=== PATIENT | female | born 1995 | race Caucasian/White ===

== ENCOUNTER 2017-05-20 17:47 | Emergency (ER) | payer OTHER ==
[~2017-05-20] VITALS: Ht 152.4 cm; Wt 54.9 kg
[2017-05-20 19:36] VITALS: BP 106/54
[2017-05-20 19:40] LABS: microscopic required? NO
[2017-05-20 19:54] LABS: urine erythrocyte NEGATIVE (NEGATIVE)
[2017-05-20 19:57] LABS: BASOPHIL % 0.6 % (0-2); PLATELET COUNT 267 x10^3mcL (130-400); RED CELL DISTRIBUTION WIDTH 13.3 % (11.5-14.5)
== END 2017-05-20 20:48 | disposition home or self-care (01) ==
LOC: ED 17:47
PROVIDERS: Emergency Medicine Emergency Medical Services
DX: O26.891 Other specified pregnancy related conditions, first trimester (principal); R10.32 Left lower quadrant pain; Z3A.01 Less than 8 weeks gestation of pregnancy
CPT/HCPCS: 36415

== ENCOUNTER 2018-06-12 18:14 | Emergency (ER) | payer OTHER ==
[~2018-06-12] VITALS: Ht 152.4 cm; Wt 56.4 kg
[2018-06-12 18:34] VITALS: Ht 152.4 cm; Wt 56.4 kg
[2018-06-12 19:52] VITALS: BP 112/60
== END 2018-06-12 19:52 | disposition home or self-care (01) ==
LOC: ED 18:14
DX: N30.00 Acute cystitis without hematuria (principal)

== ENCOUNTER 2019-12-05 00:42 | Emergency (ER) | payer OTHER ==
[~2019-12-05] VITALS: Ht 172.7 cm; Wt 59.9 kg
[2019-12-05 00:49] VITALS: Ht 172.7 cm; Wt 59.9 kg
[2019-12-05 01:31] LABS: BASOPHIL % 0.8 % (0-2); PLATELET COUNT 215 x10^3mcL (130-400); RED CELL DISTRIBUTION WIDTH 13.6 % (11.5-14.5)
[2019-12-05 01:58] LABS: CALCIUM 8.7 mg/dL (8.5-10.1); CARBON DIOXIDE 23.5 mmol/L (21-32); CHLORIDE SERUM 103 mmol/L (98-107); CREATININE SERUM 0.8 mg/dL (0.6-1.0); GFR1 > 60 mL/min; GLUCOSE SERUM 98 mg/dL (74-106); POTASSIUM SERUM 3.6 mmol/L (3.5-5.1); SODIUM SERUM 136 mmol/L (136-145)
[2019-12-05 02:02] LABS: ALBUMIN 3.7 g/dL (3.4-5.0); ALKALINE PHOSPHATASE 88 U/L (46-116); ALT/SGPT 18 U/L (14-59); AST/SGOT 17 U/L (15-37); BILIRUBIN TOTAL 0.7 mg/dL (0.20-1.00); LIPASE 76 IU/L (73-393); TOTAL PROTEIN, SERUM 7.4 g/dL (6.4-8.2)
[2019-12-05 06:07] VITALS: BP 97/53
== END 2019-12-05 06:07 | disposition home or self-care (01) ==
LOC: ED 00:42
PROVIDERS: Emergency Medicine
DX: N83.202 Unspecified ovarian cyst, left side (principal); N39.0 Urinary tract infection, site not specified

== ENCOUNTER 2020-04-29 07:27 | Emergency (ER) | payer OTHER ==
[~2020-04-29] VITALS: Ht 152.4 cm; Wt 60.3 kg
[2020-04-29 07:38] VITALS: Ht 152.4 cm; Wt 60.3 kg
[2020-04-29 08:19] LABS: BASOPHIL % 0.7 % (0.2-1.3); PLATELET COUNT 218 x10^3mcL (179-408); RED CELL DISTRIBUTION WIDTH 13.3 % (12.3-17.7)
[2020-04-29 08:32] LABS: CALCIUM 8.2 mg/dL (8.5-10.1); CARBON DIOXIDE 26.9 mmol/L (21-32); CHLORIDE SERUM 106 mmol/L (98-107); CREATININE SERUM 0.8 mg/dL (0.6-1.0); GFR1 > 60 mL/min; GLUCOSE SERUM 95 mg/dL (74-106); POTASSIUM SERUM 3.6 mmol/L (3.5-5.1); SODIUM SERUM 139 mmol/L (136-145)
[2020-04-29 08:36] LABS: ALBUMIN 3.5 g/dL (3.4-5.0); ALKALINE PHOSPHATASE 90 U/L (46-116); ALT/SGPT 25 U/L (14-59); AST/SGOT 20 U/L (15-37); BILIRUBIN TOTAL 0.29 mg/dL (0.20-1.00); LIPASE 118 IU/L (73-393); TOTAL PROTEIN, SERUM 6.7 g/dL (6.4-8.2)
[2020-04-29] MEDS ORDERED: FLAGYL500 MG PO (10:05)
[2020-04-29] MEDS ORDERED: CIPRO500 MG PO (10:05)
[2020-04-29 10:34] VITALS: BP 98/58
== END 2020-04-29 10:34 | disposition home or self-care (01) ==
LOC: ED 07:27
PROVIDERS: Emergency Medicine
DX: K52.9 Noninfective gastroenteritis and colitis, unspecified (principal)
CPT/HCPCS: J1885